=== PATIENT | female | born 1950 | race Caucasian/White ===

== ENCOUNTER 2019-03-06 20:35 | Emergency (ER) | payer OTHER, MEDICARE ==
[~2019-03-06] VITALS: Ht 165.1 cm; Wt 164.0 kg
[2019-03-06 21:53] LABS: BASOPHILS # (AUTO) 0.1 X10'3 (0-0.2); BASOPHILS % (AUTO) 1.2 % (0-1); EOSINOPHILS # (AUTO) 0.2 X10'3 (0-0.9); EOSINOPHILS % (AUTO) 2.1 % (0-6); LYMPHOCYTES # (AUTO) 1.7 X10'3 (1.1-4.8); LYMPHOCYTES % (AUTO) 20.6 % (21-51); MEAN CORPUSCULAR HEMOGLOBIN 25.4 PG (27.0-31.0); MEAN CORPUSCULAR HGB CONC 32.2 g/dL (33.0-36.5); MEAN CORPUSCULAR VOLUME 78.8 FL (78-98); MEAN PLATELET VOLUME 6.9 FL (7.4-10.4); MONOCYTES # (AUTO) 0.5 X10'3 (0-0.9); MONOCYTES % (AUTO) 5.8 % (2-12); NEUTROPHILS # (AUTO) 5.8 X10'3 (1.8-7.7); NEUTROPHILS % (AUTO) 70.3 % (42-75); PLATELET COUNT 343 X10'3 (140-440); RED BLOOD COUNT 3.55 X10'6 (4.20-5.60); WHITE BLOOD COUNT 8.2 X10'3 (4.5-11.0)
[2019-03-06 22:00] LABS: PARTIAL THROMBOPLASTIN TIME 31 SECONDS (22-32)
[2019-03-06 22:03] LABS: ALANINE AMINOTRANSFERASE 26 U/L (12-78); ALBUMIN 3.5 G/DL (3.4-5.0); ALBUMIN/GLOBULIN RATIO 0.9 (1.1-1.5); ALKALINE PHOSPHATASE 83 IU/L (46-116); ANION GAP 10 (8-16); ASPARTATE AMINO TRANSFERASE 13 U/L (10-37); BILIRUBIN,TOTAL 0.3 MG/DL (0.1-1.0); BLOOD UREA NITROGEN 29 MG/DL (7-18); BUN/CREATININE RATIO 22.8 (6.6-38.0); CALCIUM 8.9 MG/DL (8.5-10.1); CHLORIDE 103 MMOL/L (99-107); CREATININE 1.27 MG/DL (0.40-0.90); GLUCOSE 149 MG/DL (70-104); POTASSIUM 3.4 MMOL/L (3.5-5.1); SODIUM 142 MMOL/L (135-145); TOTAL CARBON DIOXIDE 29.2 MMOL/L (24-32); TOTAL PROTEIN 7.4 G/DL (6.4-8.2); eGFR 42 ML/MIN
[2019-03-06] MEDS ORDERED: AMOX500C2 PO (23:33)
[2019-03-06] MEDS ORDERED: PRED10TA PO (23:33)
[2019-03-06] MEDS ORDERED: FURO-149 PO (23:33)
[2019-03-06] MEDS ORDERED: ALBU8.5H8 INH (23:33)
[2019-03-06] MEDS ORDERED: ONDA8TAB6 PO (23:33)
[2019-03-06] MEDS ORDERED: HYDR-3965 PO (23:33)
[2019-03-06] MEDS ORDERED: ATRIN INH (23:33)
[2019-03-06] MEDS ORDERED: LISI40TA4 PO (23:44)
[2019-03-07 00:04] VITALS: BP 174/73
== END 2019-03-06 23:54 | disposition home or self-care (01) ==
LOC: ER 20:36
DX: J44.1 Chronic obstructive pulmonary disease with (acute) exacerbation (principal); K08.89 Other specified disorders of teeth and supporting structures; I11.0 Hypertensive heart disease with heart failure; I50.9 Heart failure, unspecified; E11.9 Type 2 diabetes mellitus without complications; Z88.5 Allergy status to narcotic agent; Z79.899 Other long term (current) drug therapy
CPT/HCPCS: 36415; 71045; 80053; 83605; 83880; 84484; 85025; 85610; 85730; 87040; 93005; 99284

== ENCOUNTER 2019-08-02 10:18 | Inpatient (IN) | payer MEDICARE, OTHER ==
[~2019-08-02] VITALS: Ht 172.7 cm; Wt 154.6 kg
[~2019-08-02 10:18] MED LIST: ALBU8.5H8 INH; ATRIN INH; FURO-149 PO; ONDA8TAB6 PO; PRED10TA PO
[2019-08-02 11:09] LABS: BASOPHILS # (AUTO) 0.1 X10'3 (0-0.2); BASOPHILS % (AUTO) 0.3 % (0-1); EOSINOPHILS % (AUTO) 0.1 % (0-6); HEMATOCRIT 30.6 % (35.0-45.0); HEMOGLOBIN 9.5 g/dl (12.0-16.0); LYMPHOCYTES # (AUTO) 0.4 X10'3 (1.1-4.8); LYMPHOCYTES % (AUTO) 1.5 % (21-51); MEAN CORPUSCULAR HEMOGLOBIN 23.8 PG (27.0-31.0); MEAN CORPUSCULAR HGB CONC 31.1 g/dL (33.0-36.5); MEAN CORPUSCULAR VOLUME 76.6 FL (78-98); MEAN PLATELET VOLUME 7.2 FL (7.4-10.4); MONOCYTES # (AUTO) 1.3 X10'3 (0-0.9); MONOCYTES % (AUTO) 5.2 % (2-12); NEUTROPHILS # (AUTO) 23.5 X10'3 (1.8-7.7); NEUTROPHILS % (AUTO) 92.9 % (42-75); PLATELET COUNT 329 X10'3 (140-440); RED BLOOD COUNT 3.99 X10'6 (4.20-5.60); RED CELL DISTRIBUTION WIDTH 17.3 % (11.5-14.5)
[2019-08-02 11:15] LABS: WHITE BLOOD COUNT 25.3 X10'3 (4.5-11.0)
[2019-08-02 11:26] LABS: ALANINE AMINOTRANSFERASE 26 U/L (12-78); ALBUMIN 2.8 G/DL (3.4-5.0); ALBUMIN/GLOBULIN RATIO 0.6 (1.1-1.5); ALKALINE PHOSPHATASE 155 IU/L (46-116); ANION GAP 10 (8-16); ASPARTATE AMINO TRANSFERASE 32 U/L (10-37); BILIRUBIN,TOTAL 0.5 MG/DL (0.1-1.0); BLOOD UREA NITROGEN 31 MG/DL (7-18); CALCIUM 8.9 MG/DL (8.5-10.1); CHLORIDE 101 MMOL/L (99-107); CREATININE 1.63 MG/DL (0.40-0.90); GLUCOSE 191 MG/DL (70-104); POTASSIUM 3.6 MMOL/L (3.5-5.1); SODIUM 140 MMOL/L (135-145); TOTAL PROTEIN 7.7 G/DL (6.4-8.2); eGFR 31 ML/MIN
[2019-08-02 11:36] LABS: ANISOCYTOSIS 1+; MICROCYTOSIS 1+; PLATELET ESTIMATE NORMAL; TOTAL CELLS COUNTED 100
[2019-08-02 11:37] LABS: LARGE PLATELETS FEW; POLYCHROMASIA 1+; TOXIC GRANULATION 1+
[2019-08-02] MEDS ORDERED: normal saline 1000ML IV soln IVB ONE (11:50)
[2019-08-02] MEDS ORDERED: ipratropium/albuterol 3ml nebule NEB ONE (11:50)
[2019-08-02] MEDS ORDERED: CefTRIAXone/D5W-Rocephin 1gm 50 ML IV STA (11:53)
[2019-08-02] MEDS ORDERED: azithromycin 250mg tablet PO STA (11:53)
[2019-08-02] MEDS ORDERED: normal saline 1000ml 1,000 ML IV ONE (11:55)
[2019-08-02 12:33] LABS: CLARITY,URINE CLOUDY (Clear); COLOR,URINE YELLOW (Yellow); GLUCOSE, URINE 500 mg/dl (Neg); KETONES,URINE NEGATIVE (Neg); LEUKOCYTE ESTERASE ,URINE NEGATIVE (Neg); NITRITES, URINE NEGATIVE (Neg); OCCULT BLOOD,URINE MODERATE (Neg); PH,URINE 5.5 (4.8-8.0); PROTEIN,URINE >=300 mg/dl (Neg); UROBILINOGEN,URINE 0.2 E.U/dL (0.2-1.0)
[2019-08-02 12:34] LABS: UA COLLECTION TYPE VOIDED
[2019-08-02 12:40] LABS: SQUAMOUS EPITHELIAL CELL,UR MANY /LPF (FEW)
[2019-08-02 12:41] LABS: BACTERIA,URINE 2+ /HPF (Neg)
[2019-08-02 12:42] LABS: RBC,URINE 0-2 /HPF (0-2)
[2019-08-02] MEDS ORDERED: mag hydrox/Alum hydrox/simeth 30ml oral suspension PO PRN (12:55)
[2019-08-02] MEDS ORDERED: HYDROcodone/acetaminophen 10/325mg tab PO PRN (12:55)
[2019-08-02] MEDS ORDERED: HYDROcodone/acetaminophen 5mg/325mg tablet PO PRN (12:55)
[2019-08-02] MEDS ORDERED: acetaminophen 325mg tablet PO PRN (12:55)
[2019-08-02] MEDS ORDERED: magnesium hydroxide 30ml (MOM) UD suspension PO PRN (12:55)
[2019-08-02] MEDS ORDERED: POTA10TA19 PO (13:19)
[2019-08-02] MEDS ORDERED: ESCI10TA54 PO (13:19)
[2019-08-02] MEDS ORDERED: INSU3INS2 SQ (13:20)
[2019-08-02] MEDS ORDERED: LISI10TA4 PO (13:22)
[2019-08-02] MEDS ORDERED: BACL10TA PO (13:22)
[2019-08-02] MEDS: acetaminophen 325mg tablet PO PRN (14:06)
--- NOTE | 2019-08-02 15:18 | NUR ---
GOT REPORT FROM BRANNON FRANCO IN ER
--- NOTE | 2019-08-02 15:23 | NUR ---
pt to be transferred to 355B, report called to BRANNON Correa.
[2019-08-02 16:00] VITALS: BP 114/44
[2019-08-02 16:03] VITALS: BP 114/49
[2019-08-02] MEDS ORDERED: glucagon, human recombinant 1mg kit SUBCUT PRN (16:15)
[2019-08-02] MEDS ORDERED: MESSAGE TO PHARMACY PO ONE (16:15)
[2019-08-02] MEDS ORDERED: dextrose 50%-water 50ml dispensing syringe IV PRN ×2 (16:15)
[2019-08-02] MEDS ORDERED: dextrose ORAL solution 15 GM/59 ML bottle PO PRN ×2 (16:15)
[2019-08-02 16:25] VITALS: BP 106/49
--- NOTE | 2019-08-02 16:40 | NUR ---
GAVE REPORT TO BRANNON AGUIRRE ON PCU
[2019-08-02 16:53] LABS: HEMOGLOBIN A1C 8.6 % (4.5-6.2)
[2019-08-02] MEDS ORDERED: digoxin 250mcg/ml 2ml ampule IV ONE ×2 (17:05→20:25)
--- NOTE | 2019-08-02 17:34 | NUR ---
Received from surgical to room 3025-A. Report from Renetta.
[2019-08-02 18:00] VITALS: BP 140/60
--- NOTE | 2019-08-02 18:15 | NUR ---
Patient in room PCU 3025. I have received report from BRANNON Lambert and had the opportunity to ask questions and assume patient care.
--- NOTE | 2019-08-02 18:34 | NUR ---
Problems reprioritized. Patient report given, questions answered & plan of care reviewed with
[2019-08-02 22:00] VITALS: BP 150/65
[2019-08-02] MEDS: ipratropium/albuterol 3ml nebule NEB PRN (22:08)
[2019-08-02] MEDS: metoprolol tartrate 12.5mg (1/2 tablet) PO SCH (22:10)
--- NOTE | 2019-08-02 22:15 | NUR ---
Call to pharmacy for insulin.
[2019-08-02] MEDS: insulin glargine (Lantus) pen - multi-dose SQ SCH (23:23)
[2019-08-03 02:00] VITALS: BP 147/71
[2019-08-03] MEDS: metoprolol tartrate 12.5mg (1/2 tablet) PO SCH ×4 (02:48→20:00)
[2019-08-03] MEDS: acetaminophen 325mg tablet PO PRN ×2 (03:10→15:55)
[2019-08-03] MEDS: ondansetron/PF 4mg/2ml inj IV PRN ×3 (05:12→20:22)
[2019-08-03 05:56] LABS: BASOPHILS # (AUTO) 0.1 X10'3 (0-0.2); BASOPHILS % (AUTO) 0.3 % (0-1); EOSINOPHILS % (AUTO) 0 % (0-6); HEMATOCRIT 31.1 % (35.0-45.0); HEMOGLOBIN 9.6 g/dl (12.0-16.0); LYMPHOCYTES # (AUTO) 1.6 X10'3 (1.1-4.8); LYMPHOCYTES % (AUTO) 5.7 % (21-51); MEAN CORPUSCULAR HEMOGLOBIN 23.7 PG (27.0-31.0); MEAN CORPUSCULAR VOLUME 76.4 FL (78-98); MEAN PLATELET VOLUME 7.6 FL (7.4-10.4); MONOCYTES # (AUTO) 1.4 X10'3 (0-0.9); MONOCYTES % (AUTO) 4.9 % (2-12); NEUTROPHILS # (AUTO) 25.5 X10'3 (1.8-7.7); NEUTROPHILS % (AUTO) 89.1 % (42-75); PLATELET COUNT 388 X10'3 (140-440); RED BLOOD COUNT 4.07 X10'6 (4.20-5.60); RED CELL DISTRIBUTION WIDTH 17.8 % (11.5-14.5)
[2019-08-03 06:05] LABS: WHITE BLOOD COUNT 28.6 X10'3 (4.5-11.0)
[2019-08-03 06:18] LABS: ALBUMIN 2.5 G/DL (3.4-5.0); ANION GAP 9 (8-16); BLOOD UREA NITROGEN 45 MG/DL (7-18); BUN/CREATININE RATIO 22.8 (6.6-38.0); CALCIUM 8.9 MG/DL (8.5-10.1); CHLORIDE 100 MMOL/L (99-107); CREATININE 1.97 MG/DL (0.40-0.90); GLUCOSE 152 MG/DL (70-104); POTASSIUM 3.6 MMOL/L (3.5-5.1); SODIUM 137 MMOL/L (135-145); TOTAL CARBON DIOXIDE 27.9 MMOL/L (24-32); eGFR 25 ML/MIN
--- NOTE | 2019-08-03 06:35 | NUR ---
Patient in room U 3025. I have received report from BRANNON Rajput and had the opportunity to ask questions and assume patient care. Patient is awake and sitting up in bed and in no acute distress.
[2019-08-03 07:00] VITALS: BP 108/69
[2019-08-03 07:28] LABS: ANISOCYTOSIS 1+; HYPOCHROMASIA 1+; MICROCYTOSIS 1+; PLATELET ESTIMATE NORMAL; POLYCHROMASIA 1+; ROULEAUX 1+; TOTAL CELLS COUNTED 100; TOXIC GRANULATION 2+
[2019-08-03] MEDS: ESCITALOPRAM OXALATE 5 MG TABLET PO SCH (08:16)
[2019-08-03] MEDS: potassium chloride 10mEq ER tablet PO SCH (08:16)
[2019-08-03] MEDS: enoxaparin 40mg/0.4ml syringe SUBCUT SCH (08:17)
[2019-08-03] MEDS: lisinopril 10 MG tablet PO SCH (08:19)
[2019-08-03] MEDS: insulin Lispro (HumaLOG) vial - multi-dose SQ SCH ×3 (08:25→18:55)
[2019-08-03] MEDS: CefTRIAXone/D5W-Rocephin 1gm 50 ML IV SCH (08:52)
[2019-08-03] MEDS: azithromycin/NS 500mg/250ml 250 ML IV SCH (09:45)
[2019-08-03] MEDS ORDERED: FLU VACC QS2019-20 36MOS UP/PF 60 MCG/0.5 ML SYRINGE IMVAC ONE (10:00)
[2019-08-03] MEDS ORDERED: pneumococcal 23-VAL P-sac vacc 25 mcg/0.5ml vial IMVAC ONE (10:00)
[2019-08-03 11:00] VITALS: BP 82/68
--- NOTE | 2019-08-03 11:27 | NUR ---
Paged Dr. Juan regarding patient's low BP. PAGER ID: [phone] MESSAGE: [phone]. Ofelia George. Systolic BP this morning was 116/58, and her BP is now 82/68 manually. Thank you. Juju SOUTH x [phone]
[2019-08-03 15:00] VITALS: BP 99/58
--- NOTE | 2019-08-03 17:07 | NUR ---
Pt with A1c 8.6. Attempted visit with pt at bedside however pt requested RD come back at another time. Pt admit with PNA, currently on heart healthy diet documented with 0-50% PO intake not meeting nutrient needs. Pt documented with nausea, likely impacting PO intake, receiving Zofran PRN. Written protein and DM education with referral to outpatient DM class and alternative heart healthy menu left at bedside along with RD contact information. Will remain available. Addendum: 08/03/19 at [address] Amended: Links added.
[2019-08-03 18:00] VITALS: BP 133/60
--- NOTE | 2019-08-03 18:00 | NUR ---
Patient in room PCU 3025. I have received report from Juju SOUTH and had the opportunity to ask questions and assume patient care.
--- NOTE | 2019-08-03 18:23 | NUR ---
Problems reprioritized. Patient report given, questions answered & plan of care reviewed with BRANNON Manning. Patient stable at transfer of care.
[2019-08-03] MEDS: ipratropium/albuterol 3ml nebule NEB PRN (20:22)
--- NOTE | 2019-08-03 20:25 | NUR ---
HELD METOPROLOL HR 70, BP 104 systolic; patient refused, did not want to "bottom out BP' education given she was within parameters to take medication.
[2019-08-03] MEDS: insulin glargine (Lantus) pen - multi-dose SQ SCH (21:08)
[2019-08-03 22:00] VITALS: BP 112/63
--- NOTE | 2019-08-04 01:14 | NUR ---
RT called for breathing tx, patient wheezing
[2019-08-04] MEDS: metoprolol tartrate 12.5mg (1/2 tablet) PO SCH ×2 (01:15→07:30)
--- NOTE | 2019-08-04 01:16 | NUR ---
HELD METOPROLOL per patient request, instructed patient vital signs did not warrant holding medication, patient still refused medication.
[2019-08-04] MEDS: ipratropium/albuterol 3ml nebule NEB PRN (01:17)
[2019-08-04 02:00] VITALS: BP 105/57
[2019-08-04] MEDS: acetaminophen 325mg tablet PO PRN ×2 (03:54→10:19)
--- NOTE | 2019-08-04 06:10 | NUR ---
Problems reprioritized. Patient report given, questions answered & plan of care reviewed with NOA SOUTH.
--- NOTE | 2019-08-04 06:16 | NUR ---
Patient in room PCU 3025. I have received report from BRANNON Manning and had the opportunity to ask questions and assume patient care. Patient asleep in wheelchair and in no acute distress.
[2019-08-04] MEDS: ondansetron/PF 4mg/2ml inj IV PRN (06:31)
[2019-08-04 06:35] LABS: ALBUMIN 2.4 G/DL (3.4-5.0); ANION GAP 11 (8-16); BLOOD UREA NITROGEN 67 MG/DL (7-18); BUN/CREATININE RATIO 24.6 (6.6-38.0); CALCIUM 8.5 MG/DL (8.5-10.1); CHLORIDE 98 MMOL/L (99-107); CREATININE 2.72 MG/DL (0.40-0.90); GLUCOSE 153 MG/DL (70-104); SODIUM 133 MMOL/L (135-145); TOTAL CARBON DIOXIDE 24.5 MMOL/L (24-32); eGFR 17 ML/MIN
[2019-08-04 06:36] LABS: BASOPHILS # (AUTO) 0.2 X10'3 (0-0.2); BASOPHILS % (AUTO) 0.7 % (0-1); EOSINOPHILS # (AUTO) 0.2 X10'3 (0-0.9); EOSINOPHILS % (AUTO) 0.7 % (0-6); HEMOGLOBIN 9.2 g/dl (12.0-16.0); LYMPHOCYTES # (AUTO) 1.6 X10'3 (1.1-4.8); LYMPHOCYTES % (AUTO) 7.1 % (21-51); MEAN CORPUSCULAR HEMOGLOBIN 23.9 PG (27.0-31.0); MEAN CORPUSCULAR HGB CONC 30.9 g/dL (33.0-36.5); MEAN CORPUSCULAR VOLUME 77.4 FL (78-98); MEAN PLATELET VOLUME 7.9 FL (7.4-10.4); MONOCYTES # (AUTO) 1.4 X10'3 (0-0.9); MONOCYTES % (AUTO) 6.1 % (2-12); NEUTROPHILS # (AUTO) 19.7 X10'3 (1.8-7.7); NEUTROPHILS % (AUTO) 85.4 % (42-75); PLATELET COUNT 355 X10'3 (140-440); RED BLOOD COUNT 3.87 X10'6 (4.20-5.60); RED CELL DISTRIBUTION WIDTH 17.7 % (11.5-14.5); WHITE BLOOD COUNT 23.1 X10'3 (4.5-11.0)
[2019-08-04 07:00] VITALS: BP 129/66
[2019-08-04] MEDS: ipratropium/albuterol 3ml nebule NEB SCH ×2 (07:10→11:00)
[2019-08-04] MEDS: lisinopril 10 MG tablet PO SCH (07:28)
[2019-08-04] MEDS: CefTRIAXone/D5W-Rocephin 1gm 50 ML IV SCH (07:28)
[2019-08-04] MEDS: enoxaparin 40mg/0.4ml syringe SUBCUT SCH (07:29)
[2019-08-04] MEDS: ESCITALOPRAM OXALATE 5 MG TABLET PO SCH (07:29)
[2019-08-04] MEDS: potassium chloride 10mEq ER tablet PO SCH (07:29)
--- NOTE | 2019-08-04 07:41 | NUR ---
Patient refused Lopressor this morning. States that she normally doesn't take it and that it might be what is causing her to feel dizzy.
[2019-08-04 07:52] LABS: ANISOCYTOSIS 1+; HYPOCHROMASIA 1+; MICROCYTOSIS 1+; PLATELET ESTIMATE NORMAL; POLYCHROMASIA 1+; TOTAL CELLS COUNTED 100; TOXIC GRANULATION 2+
[2019-08-04] MEDS: insulin Lispro (HumaLOG) vial - multi-dose SQ SCH (09:06)
[2019-08-04] MEDS: azithromycin/NS 500mg/250ml 250 ML IV SCH (09:06)
[2019-08-04] MEDS ORDERED: pneumococcal 23-VAL P-sac vacc 25 mcg/0.5ml vial IMVAC ONE (10:00)
[2019-08-04 11:00] VITALS: BP 111/54
[2019-08-04] MEDS ORDERED: APIX5TAB3 PO (11:35)
[2019-08-04] MEDS ORDERED: LEVO750T21 PO (11:35)
[2019-08-04] MEDS ORDERED: FURO-149 PO (11:35)
[2019-08-04] MEDS ORDERED: METO-539 PO (11:36)
[2019-08-04] MEDS ORDERED: LISI10TA4 PO (11:37)
[2019-08-04] MEDS ORDERED: ZOLP5TAB2 PO ×2 (11:40→11:42)
--- NOTE | 2019-08-04 13:35 | NUR ---
Patient stable for discharger per MD orders. All instructions reviewed with patient and family and all questions were answered. New prescriptions were called into [facility] in [place], and patient sent home with written prescription of Sylvie. Patient's signed all paperwork for his . PIV discontinued and cannula intact. ekg monitor tech discontinued. Belongings collected and sent with patient. Patient wheeled down to lobby and left in private vehicle.
[2019-08-04] MEDS ORDERED: lactobacillus rhamnosus 10,000 MMU CELLS/CAPSULE PO SCH (20:00)
[2019-08-08] MEDS ORDERED: ALBU8HFA PO (11:43)
[2019-08-08] MEDS ORDERED: PRED10TA23 PO (11:43)
[2019-08-08] MEDS ORDERED: ONDA4TAB6 PO (11:43)
[2019-08-08] MEDS ORDERED: DOXY100C43 PO (11:43)
== END 2019-08-04 13:35 | disposition home health service (06) | DRG 193 ==
LOC: ER 10:19 → ED HOLD 12:58 → SUR 3N 15:41 → PCU 3S 16:51
PROVIDERS: ADMIT Internal Medicine; ATTEND Internal Medicine
DX: J18.9 Pneumonia, unspecified organism (principal); I26.09 Other pulmonary embolism with acute cor pulmonale; N17.9 Acute kidney failure, unspecified; J44.0 Chronic obstructive pulmonary disease with (acute) lower respiratory infection; J96.11 Chronic respiratory failure with hypoxia; I13.0 Hypertensive heart and chronic kidney disease with heart failure and stage 1 through stage 4 chronic kidney disease, or unspecified chronic kidney disease; Z68.43 Body mass index [BMI] 50.0-59.9, adult; I50.813 Acute on chronic right heart failure; D50.9 Iron deficiency anemia, unspecified; E11.22 Type 2 diabetes mellitus with diabetic chronic kidney disease; N18.3 Chronic kidney disease, stage 3 (moderate); D63.8 Anemia in other chronic diseases classified elsewhere; E66.01 Morbid (severe) obesity due to excess calories; I48.91 Unspecified atrial fibrillation; Z79.01 Long term (current) use of anticoagulants; Z79.899 Other long term (current) drug therapy; Z87.891 Personal history of nicotine dependence; Z88.5 Allergy status to narcotic agent; Z28.21 Immunization not carried out because of patient refusal
CPT/HCPCS: 36415; 71046; 80048; 80053; 80162; 81001; 82948; 83036; 83605; 83880; 84145; 84443; 85025; 87040; 87070; 87081; 93005; 93306; 94640; 94760; G0378; J0456; J0696; J1160; J1650; J1815; J2405

== ENCOUNTER 2021-05-31 13:01 | Inpatient (IN) | payer MEDICARE, OTHER ==
[~2021-05-31] VITALS: Ht 167.6 cm; Wt 152.0 kg
[~2021-05-31 13:01] MED LIST changes: +ALBU18HF2 PO; -ALBU8.5H8 INH; +APIX5TAB3 PO; -ATRIN INH; +ESCI-8 PO; +FLUT1BLS10 INH; -FURO-149 PO; +FURO40TA4 PO; +INSU3INS SQ; +LEVO750T46 PO; +METO25TA6 PO; -ONDA8TAB6 PO; -PRED10TA PO
[2021-05-31 15:57] LABS: RED CELL DISTRIBUTION WIDTH 17.9 % (11.5-14.5)
[2021-05-31 15:59] LABS: BASOPHILS # (AUTO) 0.1 X10'3 (0-0.2); BASOPHILS % (AUTO) 0.6 % (0-1); EOSINOPHILS # (AUTO) 0.1 X10'3 (0-0.9); EOSINOPHILS % (AUTO) 1.2 % (0-6); HEMATOCRIT 35.6 % (35.0-45.0); HEMOGLOBIN 11.6 g/dl (12.0-16.0); MEAN CORPUSCULAR HEMOGLOBIN 26.6 PG (27.0-31.0); MEAN CORPUSCULAR HGB CONC 32.5 g/dL (33.0-36.5); MEAN CORPUSCULAR VOLUME 81.7 FL (78-98); MEAN PLATELET VOLUME 6.4 FL (7.4-10.4); MONOCYTES # (AUTO) 0.7 X10'3 (0-0.9); MONOCYTES % (AUTO) 6.7 % (2-12); NEUTROPHILS # (AUTO) 8.3 X10'3 (1.8-7.7); NEUTROPHILS % (AUTO) 81.5 % (42-75); PLATELET COUNT 442 X10'3 (140-440); RED BLOOD COUNT 4.36 X10'6 (4.20-5.60); WHITE BLOOD COUNT 10.2 X10'3 (4.5-11.0)
[2021-05-31 16:10] LABS: TROPONIN I < 0.04 NG/ML (0.0-0.05)
[2021-05-31] MEDS ORDERED: naloxone 0.4 mg/ml inj IV ONE ×2 (16:10→16:45)
[2021-05-31 16:23] LABS: ALBUMIN 2.9 G/DL (3.4-5.0); ANION GAP 10 (8-16); BLOOD UREA NITROGEN 39 MG/DL (7-18); BUN/CREATININE RATIO 25.7 (6.6-38.0); CALCIUM 9.4 MG/DL (8.5-10.1); CHLORIDE 99 MMOL/L (99-107); CREATININE 1.52 MG/DL (0.40-0.90); GLUCOSE 194 MG/DL (70-104); SODIUM 138 MMOL/L (135-145); TOTAL CARBON DIOXIDE 28.9 MMOL/L (24-32); eGFR 34 ML/MIN
[2021-05-31 16:36] LABS: ABG BASE EXCESS 4.2 mmol/L (-2.0-2.0); ABG HCO3 31.3 mmol/L (22.0-26.0); ABG OXYGEN SATURATION 95.8 % (94-97); ABG PCO2 (T) 58.5 mmHg (32.0-45.0); ABG PO2 (T) 87.6 mmHg (75.0-100.0); ALLEN'S TEST Modified; FCOHb 1.3 % (0.0-3.9); FLOW 3 L/min; FMetHb 0.3 % (0.0-1.5); FO2Hb 94.3 % (94-97); TOTAL HEMOGLOBIN 12.5 G/dl (12.0-16.0)
[2021-05-31 17:56] LABS: ALANINE AMINOTRANSFERASE 19 U/L (12-78); ALBUMIN/GLOBULIN RATIO 0.6 (1.1-1.5); ALKALINE PHOSPHATASE 107 IU/L (46-116); ASPARTATE AMINO TRANSFERASE 18 U/L (10-37); BILIRUBIN,DIRECT 0.1 MG/DL (0-0.3); BILIRUBIN,TOTAL 0.3 MG/DL (0.1-1.0); LIPASE 99 U/L (73-393); TOTAL PROTEIN 8.1 G/DL (6.4-8.2)
--- NOTE | 2021-05-31 19:07 | NUR ---
ASSUMED CARE OF PT, FIRST CONTACT WITH PT, PLACED PT ON 6 LITERS NASAL CANNULA, PULSE OX 74 TO 88%, DR DRAKE AWARE, PT IS GOING TO CT, SHE IS AROUSEABLE TO PAIN, ORIENTED TO PERSON ONLY, FOLLOWS VERY SIMPLE COMMANDS, SNORING RESPIRATIONS
[2021-05-31] MEDS ORDERED: naloxone 2mg/2ml inj IV STA (19:43)
[2021-05-31] MEDS ORDERED: ondansetron/PF 4mg/2ml inj ONE (20:59)
[2021-05-31] MEDS: naloxone 2mg/2ml inj ONE ×2 (21:00→21:52)
[2021-05-31] MEDS ORDERED: potassium Cl 40MEQ/1/2NS 520ml 520 ML IV PRN ×2 (21:05)
[2021-05-31] MEDS ORDERED: magnesium Cl slow-release 64mg tablet PO PRN (21:05)
[2021-05-31] MEDS ORDERED: magnesium 4gm in 100ml NS 100 ML IV PRN (21:05)
[2021-05-31] MEDS ORDERED: potassium Cl 20 mEq SR tablet PO PRN ×2 (21:05)
[2021-05-31] MEDS: normal saline 1000ml 1,000 ML IV SCH (21:05)
[2021-05-31] MEDS ORDERED: magnesium 2GM in 50ml NS 50 ML IV PRN (21:05)
[2021-05-31] MEDS ORDERED: ondansetron/PF 4mg/2ml inj IV PRN (21:05)
[2021-05-31] MEDS ORDERED: acetaminophen 325mg tablet PO PRN ×2 (21:05)
[2021-05-31] MEDS ORDERED: mag hydrox/Alum hydrox/simeth 30ml oral suspension PO PRN (21:05)
--- NOTE | 2021-05-31 21:07 | NUR ---
pt began coughing, not clearing secretions well, could not follow directions enough to spit them out. pt was repositioned, sidelying, suction at bedside, orally suctioned. md at bedside, ordered zofran as pt said she felt like she was going to vomit
--- NOTE | 2021-05-31 21:30 | NUR ---
DR TONG AT BEDSIDE TO EVALUATE PT, SHE IS DIFFICULT TO AROUSE, NEEDS DEEP STERNAL RUB, FALLS BACK ASLEEP FAST, SNORING RESPIRATIONS, RT AT BEDSIDE TO DRAW ABG, DR DRAKE GAVE VERBAL ORDER TO GIVE NARCAN 2MG IV,
[2021-05-31 21:43] LABS: ABG BASE EXCESS 4.5 mmol/L (-2.0-2.0); ABG HCO3 35.2 mmol/L (22.0-26.0); ABG OXYGEN SATURATION 96.1 % (94-97); ABG PCO2 (T) 91.3 mmHg (32.0-45.0); ABG PO2 (T) 103.1 mmHg (75.0-100.0); ALLEN'S TEST POSITIVE; FCOHb 1.1 % (0.0-3.9); FLOW 6 L/min; FMetHb 0.3 % (0.0-1.5); FO2Hb 94.8 % (94-97); TOTAL HEMOGLOBIN 12.2 G/dl (12.0-16.0)
[2021-05-31] MEDS ORDERED: normal saline 1000ml 1,000 ML IV ONE (21:45)
--- NOTE | 2021-05-31 21:45 | NUR ---
PT REMAINS DIFFICULT TO AROUSE AFTER RECEIVING NARCAN
[2021-05-31] MEDS ORDERED: CefTRIAXone 2gm/D5W 50ml BAG 50 ML IV ONE (21:55)
[2021-05-31] MEDS ORDERED: glucagon, human recombinant 1mg kit SUBCUT PRN (21:55)
[2021-05-31] MEDS ORDERED: MESSAGE TO PHARMACY PO ONE (21:55)
[2021-05-31] MEDS ORDERED: dextrose 50%-water 50ml dispensing syringe IV PRN ×2 (21:55)
[2021-05-31] MEDS ORDERED: dextrose ORAL solution 15 GM/59 ML bottle PO PRN ×2 (21:55)
--- NOTE | 2021-05-31 23:09 | NUR ---
Catie mclaughlin in [facility] - 05/31/21 at 2309 by [email or web address] PT ROOMED IN BE
--- NOTE | 2021-05-31 23:09 | NUR ---
PT ROOMED IN BED 11. ASSUMED CARE OF PT. PT PLACED ON BIPAP BY RT. VITALS STABLE.
--- NOTE | 2021-05-31 23:24 | NUR ---
PT WOKE UP SPONTANEOUSLY. WAS ABLE TO TELL ME SHE TOOK 4 BACLOFEN. DOES NOT KNOW STRENGTH. ON BIPAP.
--- NOTE | 2021-05-31 23:34 | NUR ---
SPOKE TO POISON CONTROL ON UPDATE
[2021-06-01 00:09] LABS: ACETAMINOPHEN < 2.0 UG/ML (10-30)
--- NOTE | 2021-06-01 00:53 | NUR ---
PT STILL TOLERATING BIPAP WELL
--- NOTE | 2021-06-01 03:35 | NUR ---
PT WOKE UP, HAD A FULL CONVERSATION WITH ME, TOOK THE BIPAP OFF, LOOKED AROUND THE ROOM, AND ASKED APPROPRIATE CONVERSATIONS. BACK ON BIPAP NOW. SHE REPORTS SHE USES 2-3 LPM O2 NC AT HOME. WILL SOMETIMES USE CPAP AT HOME FOR SLEEP APNEA LOLA ON
--- NOTE | 2021-06-01 04:02 | NUR ---
PT NOW TOOK OFF THE BIPAP; IS NO LONGER TOLERATING IT. PT IS LOUDLY CRYING AND STATING SHE WANTS HER FAMILY AND HER MOM. COMFORT MEASURES GIVEN. PT ON NASAL CANNULA 2 LPM/.
[2021-06-01 06:40] LABS: BASOPHILS # (AUTO) 0.1 X10'3 (0-0.2); BASOPHILS % (AUTO) 0.6 % (0-1); EOSINOPHILS # (AUTO) 0.1 X10'3 (0-0.9); HEMATOCRIT 32.1 % (35.0-45.0); HEMOGLOBIN 10.1 g/dl (12.0-16.0); LYMPHOCYTES # (AUTO) 0.9 X10'3 (1.1-4.8); LYMPHOCYTES % (AUTO) 10.3 % (21-51); MEAN CORPUSCULAR HEMOGLOBIN 25.9 PG (27.0-31.0); MEAN CORPUSCULAR HGB CONC 31.5 g/dL (33.0-36.5); MEAN CORPUSCULAR VOLUME 82.2 FL (78-98); MEAN PLATELET VOLUME 6.2 FL (7.4-10.4); MONOCYTES # (AUTO) 0.5 X10'3 (0-0.9); MONOCYTES % (AUTO) 5.4 % (2-12); NEUTROPHILS # (AUTO) 7.2 X10'3 (1.8-7.7); NEUTROPHILS % (AUTO) 82.7 % (42-75); PLATELET COUNT 357 X10'3 (140-440); RED BLOOD COUNT 3.91 X10'6 (4.20-5.60); RED CELL DISTRIBUTION WIDTH 18.1 % (11.5-14.5); WHITE BLOOD COUNT 8.7 X10'3 (4.5-11.0)
[2021-06-01 07:02] LABS: ALANINE AMINOTRANSFERASE 13 U/L (12-78); ALBUMIN 2.5 G/DL (3.4-5.0); ALBUMIN/GLOBULIN RATIO 0.5 (1.1-1.5); ALKALINE PHOSPHATASE 95 IU/L (46-116); ANION GAP 8 (8-16); ASPARTATE AMINO TRANSFERASE 16 U/L (10-37); BILIRUBIN,TOTAL 0.2 MG/DL (0.1-1.0); BLOOD UREA NITROGEN 34 MG/DL (7-18); BUN/CREATININE RATIO 29.3 (6.6-38.0); CALCIUM 8.4 MG/DL (8.5-10.1); CHLORIDE 104 MMOL/L (99-107); CREATININE 1.16 MG/DL (0.40-0.90); GLUCOSE 168 MG/DL (70-104); MAGNESIUM 1.7 MG/DL (1.5-2.4); POTASSIUM 4.7 MMOL/L (3.5-5.1); SODIUM 140 MMOL/L (135-145); TOTAL CARBON DIOXIDE 28.4 MMOL/L (24-32); TOTAL PROTEIN 7.3 G/DL (6.4-8.2); eGFR 46 ML/MIN
[2021-06-01] MEDS: K and/or MAG REPLACEMENT MC SCH ×2 (08:00→20:00)
[2021-06-01] MEDS ORDERED: furosemide 40mg tablet PO SCH (08:00)
[2021-06-01] MEDS ORDERED: heparin, porcine 5000 units/ml vial SQ SCH (08:00)
[2021-06-01] MEDS: furosemide 40mg/4ml inj IV SCH ×2 (09:15→20:00)
[2021-06-01] MEDS: apixaban 5mg tablet PO SCH ×2 (09:18→20:00)
[2021-06-01] MEDS: metoprolol tartrate 25mg tablet PO SCH ×2 (09:18→20:00)
[2021-06-01] MEDS: ESCITALOPRAM OXALATE 5 MG TABLET PO SCH (09:18)
[2021-06-01] MEDS: CefTRIAXone/D5W-Rocephin 1gm 50 ML IV SCH (12:27)
[2021-06-01 13:36] LABS: URINE AMPHETAMINE SCREEN NEGATIVE (Neg); URINE BARBITUATE SCREEN NEGATIVE (Neg); URINE BENZODIAZEPINES SCREEN NEGATIVE (Neg); URINE CANNABINOID SCREEN NEGATIVE (Neg); URINE COCAINE SCREEN NEGATIVE (Neg); URINE METHADONE SCREEN NEGATIVE (Neg); URINE OPIATE SCREEN NEGATIVE (Neg); URINE PHENCYCLIDINE SCREEN NEGATIVE (Neg)
[2021-06-01 13:53] LABS: CLARITY,URINE CLEAR (Clear); COLOR,URINE YELLOW (Yellow); UA COLLECTION TYPE CLN CATCH MIDSTREAM
[2021-06-01 13:54] LABS: GLUCOSE, URINE NEGATIVE (Neg); KETONES,URINE NEGATIVE (Neg); LEUKOCYTE ESTERASE ,URINE NEGATIVE (Neg); NITRITES, URINE NEGATIVE (Neg); OCCULT BLOOD,URINE TRACE-LYSED (Neg); PROTEIN,URINE NEGATIVE (Neg); UROBILINOGEN,URINE 0.2 E.U/dL (0.2-1.0)
[2021-06-01 14:03] LABS: BACTERIA,URINE 1+ /HPF (Neg); MUCUS STRANDS NONE SEEN /LPF (Neg); RBC,URINE 0-2 /HPF (0-2); SQUAMOUS EPITHELIAL CELL,UR FEW /LPF (FEW)
[2021-06-01 14:53] LABS: ABG BASE EXCESS 4.7 mmol/L (-2.0-2.0); ABG HCO3 30.8 mmol/L (22.0-26.0); ABG OXYGEN SATURATION 96.1 % (94-97); ABG PCO2 (T) 53.4 mmHg (32.0-45.0); ABG PO2 (T) 88.5 mmHg (75.0-100.0); ALLEN'S TEST POSITIVE; FCOHb 0.8 % (0.0-3.9); FLOW 3 L/min; FMetHb 0.3 % (0.0-1.5); TOTAL HEMOGLOBIN 10.5 G/dl (12.0-16.0)
[2021-06-01] MEDS: ipratropium/albuterol 3ml nebule NEB SCH ×3 (15:00→22:57)
[2021-06-01] MEDS: methylPREDNISolone sod succ 125mg/2ml vial IV SCH (16:48)
[2021-06-01] MEDS: normal saline 1000ml 1,000 ML IV SCH (16:48)
[2021-06-01] MEDS ORDERED: amLODIPine 5mg tablet PO ONE (18:45)
[2021-06-01] MEDS: metoprolol succinate 25mg (24-HOUR) SR. Tablet PO SCH (18:53)
[2021-06-01] MEDS: insulin glargine (Lantus) pen - multi-dose SQ SCH (21:00)
[2021-06-01] MEDS: HYDROmorphone inj. 0.5 MG/0.5 ML DISP.SYRIN IV PRN (22:13)
[2021-06-02] VITALS (7 sets, daily range): BP systolic 107–160; BP diastolic 68–89
[2021-06-02] MEDS: HYDROmorphone inj. 0.5 MG/0.5 ML DISP.SYRIN IV PRN (01:54)
[2021-06-02] MEDS: methylPREDNISolone sod succ 125mg/2ml vial IV SCH ×3 (03:08→15:15)
[2021-06-02] MEDS: ipratropium/albuterol 3ml nebule NEB SCH ×6 (03:40→23:47)
[2021-06-02 06:03] LABS: BASOPHILS % (AUTO) 0.2 % (0-1); EOSINOPHILS % (AUTO) 0 % (0-6); HEMATOCRIT 33.4 % (35.0-45.0); HEMOGLOBIN 10.9 g/dl (12.0-16.0); LYMPHOCYTES # (AUTO) 0.6 X10'3 (1.1-4.8); MEAN CORPUSCULAR HEMOGLOBIN 26.4 PG (27.0-31.0); MEAN CORPUSCULAR HGB CONC 32.6 g/dL (33.0-36.5); MEAN CORPUSCULAR VOLUME 81.2 FL (78-98); MEAN PLATELET VOLUME 6.5 FL (7.4-10.4); MONOCYTES # (AUTO) 0.1 X10'3 (0-0.9); MONOCYTES % (AUTO) 1.1 % (2-12); NEUTROPHILS # (AUTO) 9.9 X10'3 (1.8-7.7); NEUTROPHILS % (AUTO) 92.7 % (42-75); PLATELET COUNT 423 X10'3 (140-440); RED BLOOD COUNT 4.11 X10'6 (4.20-5.60); RED CELL DISTRIBUTION WIDTH 17.6 % (11.5-14.5); WHITE BLOOD COUNT 10.6 X10'3 (4.5-11.0)
--- NOTE | 2021-06-02 06:17 | NUR ---
Patient in room PCU 3021. I have received report from Yu SOUTH and had the opportunity to ask questions and assume patient care.
[2021-06-02 06:20] LABS: ALANINE AMINOTRANSFERASE 20 U/L (12-78); ALBUMIN 2.5 G/DL (3.4-5.0); ALBUMIN/GLOBULIN RATIO 0.5 (1.1-1.5); ALKALINE PHOSPHATASE 98 IU/L (46-116); ANION GAP 9 (8-16); ASPARTATE AMINO TRANSFERASE 45 U/L (10-37); BILIRUBIN,TOTAL 0.3 MG/DL (0.1-1.0); BLOOD UREA NITROGEN 37 MG/DL (7-18); BUN/CREATININE RATIO 32.2 (6.6-38.0); CALCIUM 8.9 MG/DL (8.5-10.1); CHLORIDE 102 MMOL/L (99-107); CREATININE 1.15 MG/DL (0.40-0.90); GLUCOSE 236 MG/DL (70-104); MAGNESIUM 1.7 MG/DL (1.5-2.4); POTASSIUM 4.9 MMOL/L (3.5-5.1); SODIUM 139 MMOL/L (135-145); TOTAL CARBON DIOXIDE 27.7 MMOL/L (24-32); TOTAL PROTEIN 7.5 G/DL (6.4-8.2); eGFR 46 ML/MIN
--- NOTE | 2021-06-02 06:31 | NUR ---
Problems reprioritized. Patient report given, questions answered & plan of care reviewed with BRANNON Rachel.
--- NOTE | 2021-06-02 07:37 | NUR ---
Paged Dr Bridges per pt request of excedrin PAGER ID: [phone] MESSAGE: Re: Ofelia George 3025: pt requesting Excedrin for headache, she was given tyenol but did not help. Please advise. ANGELA Rahcel.
[2021-06-02] MEDS: furosemide 40mg/4ml inj IV SCH ×2 (07:52→20:56)
[2021-06-02] MEDS: CefTRIAXone/D5W-Rocephin 1gm 50 ML IV SCH (07:52)
[2021-06-02] MEDS: metoprolol tartrate 25mg tablet PO SCH ×2 (07:53→20:59)
[2021-06-02] MEDS: apixaban 5mg tablet PO SCH ×2 (07:54→20:59)
[2021-06-02] MEDS: normal saline 1000ml 1,000 ML IV SCH (07:55)
[2021-06-02] MEDS: ESCITALOPRAM OXALATE 5 MG TABLET PO SCH (07:55)
[2021-06-02] MEDS: metoprolol succinate 25mg (24-HOUR) SR. Tablet PO SCH (07:55)
[2021-06-02] MEDS: K and/or MAG REPLACEMENT MC SCH ×2 (08:00→20:00)
[2021-06-02] MEDS: insulin Lispro (HumaLOG) vial - multi-dose SQ SCH ×3 (11:37→21:09)
--- NOTE | 2021-06-02 14:21 | NUR ---
Noted pt with T2DM, well controlled for age with A1c 8.1%. Written DM education with RD contact information placed in patient's chart. Pt seen by ELENA at last admit 12/25 for written and verbal DM education with A1c 9.1% at that time. Will continue to follow. Addendum: 06/02/21 at [address] Amended: Links added.
--- NOTE | 2021-06-02 17:34 | NUR ---
Paged Dr. Bridges per pt request PAGER ID: [phone] MESSAGE: Re: Ofelia George 3020. has back pain and does not want tyenol. Please advise. ANGELA Rachel
--- NOTE | 2021-06-02 18:31 | NUR ---
Problems reprioritized. Patient report given, questions answered & plan of care reviewed with Yu SOUTH.
[2021-06-02] MEDS: HYDROcodone/acetaminophen 5mg/325mg tablet PO PRN (20:56)
[2021-06-02] MEDS: lactobacillus rhamnosus 10,000 MMU CELLS/CAPSULE PO SCH (20:56)
[2021-06-02] MEDS: insulin glargine (Lantus) pen - multi-dose SQ SCH (21:08)
[2021-06-03] MEDS: methylPREDNISolone sod succ 125mg/2ml vial IV SCH ×2 (00:30→08:02)
[2021-06-03 02:00] VITALS: BP 151/85
[2021-06-03] MEDS: HYDROcodone/acetaminophen 5mg/325mg tablet PO PRN (02:52)
[2021-06-03] MEDS: ipratropium/albuterol 3ml nebule NEB SCH ×3 (03:34→11:14)
[2021-06-03 05:59] LABS: BASOPHILS % (AUTO) 0.1 % (0-1); EOSINOPHILS % (AUTO) 0.1 % (0-6); HEMATOCRIT 34.1 % (35.0-45.0); HEMOGLOBIN 10.9 g/dl (12.0-16.0); LYMPHOCYTES # (AUTO) 0.5 X10'3 (1.1-4.8); LYMPHOCYTES % (AUTO) 4.7 % (21-51); MEAN CORPUSCULAR HEMOGLOBIN 26.2 PG (27.0-31.0); MEAN CORPUSCULAR VOLUME 81.8 FL (78-98); MEAN PLATELET VOLUME 6.7 FL (7.4-10.4); MONOCYTES # (AUTO) 0.2 X10'3 (0-0.9); MONOCYTES % (AUTO) 1.5 % (2-12); NEUTROPHILS # (AUTO) 10.2 X10'3 (1.8-7.7); NEUTROPHILS % (AUTO) 93.6 % (42-75); PLATELET COUNT 445 X10'3 (140-440); RED BLOOD COUNT 4.17 X10'6 (4.20-5.60); RED CELL DISTRIBUTION WIDTH 18.2 % (11.5-14.5); WHITE BLOOD COUNT 10.9 X10'3 (4.5-11.0)
[2021-06-03 06:12] LABS: ALANINE AMINOTRANSFERASE 22 U/L (12-78); ALBUMIN 2.6 G/DL (3.4-5.0); ALBUMIN/GLOBULIN RATIO 0.5 (1.1-1.5); ALKALINE PHOSPHATASE 98 IU/L (46-116); ANION GAP 9 (8-16); ASPARTATE AMINO TRANSFERASE 26 U/L (10-37); BILIRUBIN,TOTAL 0.2 MG/DL (0.1-1.0); BLOOD UREA NITROGEN 47 MG/DL (7-18); BUN/CREATININE RATIO 32.4 (6.6-38.0); CALCIUM 8.7 MG/DL (8.5-10.1); CHLORIDE 99 MMOL/L (99-107); CREATININE 1.45 MG/DL (0.40-0.90); GLUCOSE 415 MG/DL (70-104); MAGNESIUM 1.8 MG/DL (1.5-2.4); POTASSIUM 4.7 MMOL/L (3.5-5.1); SODIUM 136 MMOL/L (135-145); TOTAL CARBON DIOXIDE 27.6 MMOL/L (24-32); TOTAL PROTEIN 7.6 G/DL (6.4-8.2); eGFR 35 ML/MIN
--- NOTE | 2021-06-03 06:26 | NUR ---
Problems reprioritized. Patient report given, questions answered & plan of care reviewed with BRANNON Rachel.
--- NOTE | 2021-06-03 06:41 | NUR ---
Patient in room PCU 3021. I have received report from Yu Eaton and had the opportunity to ask questions and assume patient care.
[2021-06-03] MEDS: K and/or MAG REPLACEMENT MC SCH (08:00)
[2021-06-03] MEDS: CefTRIAXone/D5W-Rocephin 1gm 50 ML IV SCH (08:01)
[2021-06-03] MEDS: normal saline 1000ml 1,000 ML IV SCH (08:01)
[2021-06-03] MEDS: furosemide 40mg/4ml inj IV SCH (08:02)
[2021-06-03] MEDS: lactobacillus rhamnosus 10,000 MMU CELLS/CAPSULE PO SCH (08:02)
[2021-06-03] MEDS: metoprolol succinate 25mg (24-HOUR) SR. Tablet PO SCH (08:02)
[2021-06-03] MEDS: metoprolol tartrate 25mg tablet PO SCH (08:03)
[2021-06-03] MEDS: apixaban 5mg tablet PO SCH (08:04)
[2021-06-03] MEDS: ESCITALOPRAM OXALATE 5 MG TABLET PO SCH (08:04)
[2021-06-03] MEDS: insulin Lispro (HumaLOG) vial - multi-dose SQ SCH (10:09)
[2021-06-03 11:00] VITALS: BP 149/89
--- NOTE | 2021-06-03 14:06 | NUR ---
Paged Dr. Bridges PAGER ID: [phone] MESSAGE: Re: Ofelia George [phone]. Can you complete discharge information. Transfering to [facility] report given and packet is ready. Thank you. ANGELA Rachel.
--- NOTE | 2021-06-03 15:01 | NUR ---
Pt is stable for discharge per MD orders. PIV discontinued and tele monitor discontinued. Belongings collected and sent with pt. She was taken on a gurney per ambulance. [facility] left at 1430.
== END 2021-06-03 14:42 | DRG 917 ==
LOC: ER 13:01 → UNDOADMIN 21:05 → ED HOLD 21:05 → PCU 3S 06-02 00:50
PROVIDERS: ADMIT Internal Medicine; ATTEND Family Medicine
PROC: 5A09357 Assistance with Respiratory Ventilation, Less than 24 Consecutive Hours, Continuous Positive Airway Pressure (ICD-10-PCS; principal; 2021-05-31)
DX: T42.8X1A Poisoning by antiparkinsonism drugs and other central muscle-tone depressants, accidental (unintentional), initial encounter (principal); J18.9 Pneumonia, unspecified organism; G93.41 Metabolic encephalopathy; I50.33 Acute on chronic diastolic (congestive) heart failure; J96.00 Acute respiratory failure, unspecified whether with hypoxia or hypercapnia; J44.1 Chronic obstructive pulmonary disease with (acute) exacerbation; E87.2 Acidosis; I13.0 Hypertensive heart and chronic kidney disease with heart failure and stage 1 through stage 4 chronic kidney disease, or unspecified chronic kidney disease; J44.0 Chronic obstructive pulmonary disease with (acute) lower respiratory infection; J98.11 Atelectasis; Z68.43 Body mass index [BMI] 50.0-59.9, adult; I87.2 Venous insufficiency (chronic) (peripheral); E66.01 Morbid (severe) obesity due to excess calories; M54.9 Dorsalgia, unspecified; Z20.822 Contact with and (suspected) exposure to COVID-19; I48.91 Unspecified atrial fibrillation; N18.30 Chronic kidney disease, stage 3 unspecified; Z87.01 Personal history of pneumonia (recurrent); Y92.89 Other specified places as the place of occurrence of the external cause; Z88.8 Allergy status to other drugs, medicaments and biological substances; Z88.5 Allergy status to narcotic agent
CPT/HCPCS: 36415; 36600; 70450; 71045; 80048; 80053; 80076; 80305; 80329; 81001; 82140; 82803; 82948; 83036; 83605; 83690; 83735; 84484; 85018; 85025; 87081; 87635; 93005; 94640; 94660; 94760; 96361; 96374; 97110; 97161; 97530; 99285; G0378; J0696; J1170; J1815; J1940; J2310; J2405; J2930; J7030

== ENCOUNTER 2021-07-19 18:01 | Emergency (ER) | payer MEDICARE, OTHER ==
[~2021-07-19] VITALS: Ht 165.1 cm; Wt 147.7 kg
[~2021-07-19 18:01] MED LIST changes: -ALBU18HF2 PO; -FLUT1BLS10 INH; -FURO40TA4 PO; -LEVO750T46 PO
--- NOTE | 2021-07-19 19:40 | NUR ---
PT ROOMED IN BED 12. ASSUMED CARE OF PT.
[2021-07-19] MEDS ORDERED: HYDROcodone/acetaminophen 10/325mg tab PO ONE (20:30)
[2021-07-19] MEDS ORDERED: fentaNYL/PF 50MCG/1 ML 2ML syringe IV ONE (20:30)
[2021-07-19] MEDS ORDERED: morphine 4 MG/ML inj SYRINge IV ONE (21:40)
[2021-07-19 22:10] VITALS: BP 165/80
--- NOTE | 2021-07-19 22:15 | NUR ---
Pt given and understands d/c instructions. IV d/c'd, catheter was intact. Called pt's Silver cosme .
[2021-07-19] MEDS ORDERED: HYDR-3972 PO (22:30)
== END 2021-07-19 22:53 | disposition home or self-care (01) ==
LOC: ER 18:01
DX: M54.6 Pain in thoracic spine (principal); R10.9 Unspecified abdominal pain; I11.0 Hypertensive heart disease with heart failure; I50.9 Heart failure, unspecified; J44.9 Chronic obstructive pulmonary disease, unspecified; E11.9 Type 2 diabetes mellitus without complications; Z87.01 Personal history of pneumonia (recurrent); Z88.8 Allergy status to other drugs, medicaments and biological substances; Z91.018 Allergy to other foods; Z88.5 Allergy status to narcotic agent; Z79.899 Other long term (current) drug therapy; Z79.4 Long term (current) use of insulin
CPT/HCPCS: 96374; 96375; 99284; J2270; J3010